=== PATIENT | male | born 1970 | race Caucasian/White ===

== ENCOUNTER 2018-09-25 20:26 | Emergency (ER) | payer OTHER ==
[2018-09-25] MEDS ORDERED: ceFAZolin 1,000 MG VIAL IM STA (20:56)
[2018-09-25] MEDS ORDERED: GELATIN SPONGE,ABSORB (LARGE) 1 EACH SPONGE TOPICAL STA (21:21)
--- NOTE | 2018-09-25 21:31 | XR ---
EXAMINATION TYPE: XR hand complete RT DATE OF EXAM: 09/25/2018 COMPARISON: NONE HISTORY: Trauma. Pain TECHNIQUE: 3 views FINDINGS: There is nondisplaced transverse fracture of the tuft of the distal phalanx of the middle f power right hand. There is no dislocation. There are soft tissue swelling. Joint spaces are normal. IMPRESSION: Nondisplaced fracture of the distal phalanx middle finger right hand.
[2018-09-25] MEDS ORDERED: CEPHALEXIN 500MG STARTER PACK 4 CAP BTL PO STA (22:02)
[2018-09-25] MEDS ORDERED: ACET/COD 300 MG/30 MG STARTER PACK 6 TAB BTL PO STA (22:02)
--- NOTE | 2018-09-25 22:06 | ED ---
Wound/Laceration HPI - General Chief Complaint: Wound/Laceration Stated Complaint: Finger laceration Time Seen by Provider: 09/25/18 20:32 Source: patient, RN notes reviewed, old records reviewed Mode of arrival: ambulatory Limitations: no limitations - History of Present Illness Initial Comments: Patient is a 48 year old male with R distal finger laceration and crushing injury after he was trying to clean the snow from his snowblower. Patient reports that he used his fingers to clear the blade. Patient states that the R middle finger nail is almost completely off. TDAP is up to date. Patient reports full ROM of finger. - Related Data Previous Rx's Medication Instructions Recorded Dicloxacillin [Dynapen] 500 mg PO Q6H 10 Days capsule 03/06/16 Cephalexin [Keflex] 500 mg PO Q6HR #40 cap 09/25/18 Allergies Allergy/AdvReac Type Severity Reaction Status Date / Time No Known Allergies Allergy Verified 09/25/18 20:31 Review of Systems ROS Statement: Those systems with pertinent positive or pertinent negative responses have been documented in the HPI. ROS Other: All systems not noted in ROS Statement are negative. Past Medical History Past Medical History: Thyroid Disorder History of Any Multi-Drug Resistant Organisms: None Reported Past Surgical History: Cholecystectomy Past Psychological History: Depression Smoking Status: Never smoker Past Alcohol Use History: Occasional Past Drug Use History: None Reported General Exam - General Exam Comments Initial Comments: This is a 48 year old male, moderate distress. Limitations: no limitations General appearance: alert, in no apparent distress Head exam: Present: atraumatic, normocephalic, normal inspection Eye exam: Present: normal appearance, PERRL, EOMI. Absent: scleral icterus, conjunctival injection, periorbital swelling ENT exam: Present: normal exam, mucous membranes moist Neck exam: Present: normal inspection. Absent: tenderness, meningismus, lymphadenopathy Respiratory exam: Present: normal lung sounds bilaterally. Absent: respiratory distress, wheezes, rales, rhonchi, stridor Cardiovascular Exam: Present: regular rate, normal rhythm, normal heart sounds. Absent: systolic murmur, diastolic murmur, rubs, gallop, clicks Right Hand Wrist exam: Present: full ROM. Absent: normal inspection Hand L/R Back: 1 - Nail avulsion, 1cm irregluar lacerations to nailbed. Vascular: Present: normal capillary refill Back exam: Present: normal inspection Course Vital Signs 09/25/18 09/25/18 20:28 22:19 Temperature 98.6 F 97.8 F Pulse Rate 113 H 80 Respiratory 20 18 Rate Blood Pressure 156/129 112/80 O2 Sat by Pulse 95 97 Oximetry Procedures - Laceration Laceration #1 Indication: laceration Site: hand (distal R 3rd digit) Size (cm): 1 Description: irregular (underneath nail, nail avulsion) Depth: simple, single layer Anesthetic Used: lidocaine 1% Anesthesia Technique: nerve block Amount (mls): 5 Pre-repair: wound explored, irrigated extensively Type of Sutures: vicryl Size of Sutures: 5-0 Number of Sutures: 7 Patient Tolerated Procedure: well, no complications Medical Decision Making - Medical Decision Making 48 year old male presents with R middle finger injury while cleanign loom blower. Patient has total nail avuslion. Nailbed lacerations were repaired with absorbable sutures. Gelfoam and tube gauze placed overtop. Patient has open fracture with ebdience of distal tuft fracture on xray. Given IM KEFZOL, his TDAP is up to date. Patient has been given antibiotics, pain medications, and referral to hand surgeon. Discussed keeping tube gauze on until ortho follow up. - Radiology Data Radiology results: report reviewed Nondisplaced fracture of the distal phalanx of the middle finger of the right hand. Disposition Clinical Impression: Open finger fracture, Nail avulsion Disposition: HOME SELF-CARE Condition: Good Instructions (If sedation given, give patient instructions): Finger Fracture ( ED), Nail Avulsion (ED) Additional Instructions: Patient advised to follow-up with primary care physician. Take the medications as prescribed. He needed follow-up with a hand surgeon within the next 1-2 days. Keep the tube gauze dressing on until following up with hand specialist. Return to the emergency department if any alarming signs or symptoms occur. Prescriptions: Cephalexin [Keflex] 500 mg PO Q6HR #40 cap Is patient prescribed a controlled substance at d/c from ED?: No Referrals: Nonstaff,Physician [Primary Care Provider] - 1-2 days Max Huang DO [Medical Doctor] - 1-2 days Todd Sloan MD [Medical Doctor] - 1-2 days Time of Disposition: 22:04
[2018-09-25 22:21] VITALS: BP 112/80; PULSE 80; RESP 18; TEMP 97.8
== END 2018-09-25 22:19 | disposition home or self-care (01) ==
LOC: EC 20:26
DX: S62.662B Nondisplaced fracture of distal phalanx of right middle finger, initial encounter for open fracture (principal); W31.89XA Contact with other specified machinery, initial encounter; Y93.89 Activity, other specified; Y92.89 Other specified places as the place of occurrence of the external cause
CPT/HCPCS: 99283; 11760; 96372; 73130; J0690